=== PATIENT | female | born 1965 | race Caucasian/White ===

== ENCOUNTER 2023-09-27 11:39 | Emergency (ER) | payer BC, SELFPAY ==
[2023-09-27 13:08] VITALS: BP 150/94; PULSE 74; O2SAT 97
== END 2023-09-27 14:05 | disposition left against medical advice (07) ==
PROVIDERS: Emergency Provider Emergency Medicine
DX: M54.50 Low back pain, unspecified (principal); Z87.442 Personal history of urinary calculi; Z53.21 Procedure and treatment not carried out due to patient leaving prior to being seen by health care provider

== ENCOUNTER 2025-01-06 15:52 | Inpatient (IN) | payer BC, SELFPAY ==
--- NOTE | ~2025-01-06 | CT_ITS ---
EXAMINATION: CT ANGIOGRAM CHEST CLINICAL INFORMATION: A. Fib, dilated RA, rule out PE. COMPARISON: None available. TECHNIQUE: Multiple axial images were obtained through the chest after the administration of 50 mL of Omnipaque 350 intravenous contrast. Extensive vascular post-processing including two-dimensional and three-dimensional reformatted images were created and reviewed on an independent workstation. This CT examination was performed using dose optimization techniques as appropriate, variously including the following: *Automated exposure control *Adjustment of mA and/or kV according to patient size (this includes techniques or standardized protocols for targeted exams where dose is matched to indication/reason for exam; i.e. extremities or head) *Use of iterative reconstruction technique FINDINGS: VASCULAR: Exam study quality is good. There are small peripheral segmental and subsegmental pulmonary emboli in the right greater than left lower lobes, and right middle lobe. Clot burden is low. There is no right heart strain, and there is no reflux of contrast into the hepatic IVC. Findings do not meet criteria for submassive PE. There is no evidence of acute aortic syndrome or aneurysm. There is minimal calcific and atheromatous plaque. 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 The main pulmonary artery is not enlarged. The heart size is top normal. There is mild dilatation of the RA. There is no pericardial effusion. LUNGS: Lungs demonstrate patchy subsegmental reticular opacities in both medial lower lobes, likely atelectasis given appearance. There are mild changes of centrilobular emphysema with upper lobe predominance. No additional consolidation or abnormal groundglass opacity. No pleural effusion or pneumothorax. There is small airway thickening diffusely to a mild degree. MEDIASTINUM: Partially imaged thyroid is normal. No adenopathy or mass. Esophagus has a normal appearance. Central airways are normal. AXILLA/CHEST WALL: No masses or lymphadenopathy. UPPER ABDOMEN: There are several tiny nonobstructing calculi in the superior left kidney measuring up to approximately 2 mm. Remainder of the imaged upper abdominal contents appear normal. OSSEOUS STRUCTURES: Unremarkable. CT/CT angio chest PE protocol IMPRESSION: 1. Examination positive for pulmonary emboli, mainly within the segmental and subsegmental right lower lobe, right middle lobe, and left lower lobe. Low clot burden. No evidence of right heart strain or contrast reflux into the IVC. Findings do not meet criteria for submassive PE. 2. Mild bilateral lower lobe subpleural subsegmental reticular opacities, likely atelectasis given appearance. 3. Mild diffuse small airway thickening suggesting chronic bronchitis. 4. Mild centrilobular emphysema. 5. Nonobstructing tiny left renal calculi. Findings communicated to Dr. Isai Busch via secure text at 2:43 PM, 01/07/2025. Electronically signed by: Cedric Flores MD 01/07/2025 02:44 PM EDT
--- NOTE | ~2025-01-06 | XR_ITS ---
CLINICAL HISTORY: palpitations 2 view chest x-ray Comparison: None Findings: Lungs are clear without acute infiltrates. No pneumothorax. Heart size normal. No acute bony abnormalities. Impression: No acute processes This document has been electronically signed by: Thai Olmedo MD on 01/06/2025 18:04:24
[2025-01-06 16:15] VITALS: BP 108/86; BP 134/100; PULSE 152; PULSE 158; RESP 24; TEMP 37; O2SAT 97; BMI 22.9
--- NOTE | 2025-01-06 16:18 | ECG_ITS ---
Test Reason : palpitations Blood Pressure : */* mmHG Vent. Rate : 153 BPM Atrial Rate : * BPM P-R Int : * ms QRS Dur : 74 ms QT Int : 294 ms P-R-T Axes : * 56 -31 degrees QTcB Int : 469 ms Atrial fibrillation with rapid ventricular response Abnormal QRS-T angle, consider primary T wave abnormality Abnormal ECG No previous ECGs available Referred By: Juana Castro Electronically Signed By: EFRAIN LEDBETTER MD
[2025-01-06 16:42] LABS: MANUAL DIFF FLAG NO
[2025-01-06] MEDS: Metoprolol Tartrate 5 MG/5 ML VIAL IVPUSH (16:43)
[2025-01-06] MEDS: 0.9 % Sodium Chloride 1,000 ML 999 ML IV ×2 (16:45→18:10)
--- NOTE | 2025-01-06 16:45 | ED_ITS ---
HPI - Arrhythmia/Palpitations General Chief Complaint: Arrhythmia/Palpitations Stated Complaint: sob,flu like symptoms, a-fib Time Seen by Provider: 01/06/25 15:55 Source: patient and EMS Mode of arrival: EMS Limitations: no limitations History of Present Illness ED Provider: Juana Castro APRN HPI narrative: This is a 59-year-old female who has no known medical history and takes no daily medications who presents to the ER with complaints of palpitations since yesterday afternoon, dyspnea on exertion. No chest pain, dizziness, fevers, chills, leg swelling, leg pain. Of note patient reports 2 weeks ago she had a viral illness which she has recovered from. At that time she had body aches, fever and upper respiratory symptoms. She feels that she may be dehydrated. She does smoke cigarettes daily and drinks 3-4 cups of coffee a day. She has not seen a primary care doctor in many years. Related Data Home Medications ?Medication ?Instructions ?Recorded ?Confirmed No Known Home Meds 01/06/25 01/06/25 Allergies Allergy/AdvReac Type Severity Reaction Status Date / Time No Known Allergies Allergy Verified 01/06/25 16:18 [No Known Allergies*] Review of Systems 2 Review of Systems: Yes all other systems are reviewed and are negative Constitutional: Constitutional: Reports no additional constitutional complaints, Denies body ache(s), Denies chills, Denies fever(s), Denies headache(s) and Denies weakness Eyes: Eyes: Reports no additional eye complaints and Denies change in vision ENT: Reports system reviewed and no additional complaints, except as documented, Denies dizziness, Denies headache(s), Denies nasal congestion, Denies nasal discharge and Denies neck pain Cardiovascular: Cardiovascular: Reports no additional cardiovascular complaints, Denies chest pain, Denies leg edema, Reports palpitations and Reports dyspnea on exertion Respiratory: Respiratory: Reports no additional respiratory complaints, Denies cough and Reports dyspnea on exertion Gastrointestinal: Gastrointestinal: Reports no additional gastrointestinal complaints, Denies abdominal pain, Denies diarrhea, Denies nausea and Denies vomiting Genitourinary: Genitourinary: Reports no additional female genitourinary complaints and Denies urinary incontinence Musculoskeletal: Musculoskeletal: Reports no additional musculoskeletal complaints, Denies back pain, Denies arthralgias, Denies joint swelling, Denies neck pain, Denies numbness and Denies tingling Integumentary/Breasts: Skin/Breast: Reports system reviewed and no additional complaints, except as docu and Denies rash Neurologic: Reports system reviewed and no additional complaints, except as documented, Denies Abnormal speech present, Denies dizziness, Denies headache(s), Denies numbness, Denies tingling and Denies weakness Endocrine: Endocrine: Reports palpitations PMFSH Past Medical History Attestation statement: The following information was validated with the patient. Source: old records reviewed and nursing notes reviewed Medical History (Updated 01/06/25 @ 18:23 by Isai Busch MD) Nephrolithiasis Social History Social History Smoked in Last 30 Days: Yes Use of substances other than those prescribed or required for medical reasons: No Advance Directives: No Advance Directives Information Provided: No Do you have a plan to hurt others: No Plan Patient : No Physical Exam 2 Vital Signs: Vital Signs: Last Vital Signs Temp 98.2 F 01/06/25 19:10 Pulse 108 H 01/06/25 19:10 Resp 17 01/06/25 19:10 BP 105/74 01/06/25 19:10 Pulse Ox 95 01/06/25 19:10 O2 Del Method Room Air 01/06/25 19:10 O2 Flow Rate 97 01/06/25 17:45 BMI result Body Mass Index 22.9 Const: General: cooperative, healthy appearing, comfortable and no acute distress Orientation/consciousness: patient oriented x3 Limitations: no limitations HEENT: Head: Yes normal to inspection Ears: hearing grossly normal bilaterally General nose exam: Normal external nose present Face and sinus: Yes normal facial exam Mouth: Normal oral and palatal mucosa present Throat: Yes posterior oropharynx normal Eyes: General: appearance normal, both eyes and all related structures P upils: Equal, round and reactive pupils present Neck: Neck: Yes normal visual inspection Chest: Chest palpation & inspection: normal inspection of the chest Resp: Effort & Inspection: normal respiratory effort Auscultation: clear to auscultation bilaterally Cardio: Rate: regular rate and tachycardic Rhythm: abnormal rhythm irregularly irregular Peripheral pulses: Peripheral pulses 2+ throughout GI: Inspection: Yes normal to inspection Palpation (GI): Soft to palpation and nontender Auscultation: normal bowel sounds Back/Spine/Pelvis: Thoracic/Lumbar Spine: thoracic and lumbar spine normal to inspection Skin: General skin exam: no rashes or lesions noted Neuro: General: patient oriented x3, no focal motor deficits and normal sensation to monofilament Cranial nerves: Yes Equal, round and reactive pupils present Cognition (Neuro): normal cognition Speech: No Abnormal speech present Gait exam (Neuro): Normal gait present Motor exam (neuro): 5/5 motor strength present throughout Extrem: General: Yes normal to inspection, Yes no pedal edema and Yes no calf tenderness Course Course Course Narrative: 175-heart rate 130s to 140. Blood pressure 101/60 after 1 L of fluid and 5 of IV Lopressor. Patient a new AFib with onset of symptoms 24 hours. Will discuss with Cardiology they are recommendations. Patient will receive additional L of IV fluids Reevaluation(s) Reevaluation #1: 191-After one dose of 0.25mg of digoxin hr is getting better-now 110-120. BP stable. D/w with Dr Mock, will give additional 0.25mg IV digoxin and admit. Medications Administered Discontinued Medications Generic Name Dose Route Start Last Admin Trade Name Freq PRN Reason Stop Dose Admin Apixaban 5 mg 01/06/25 18:05 01/06/25 18:09 Apixaban 5 Mg Tablet PO 01/06/25 18:06 5 mg ONCE ONE Administration Digoxin 0.25 mg 01/06/25 18:00 01/06/25 18:09 Digoxin 0.5 Mg/2 Ml Ampul IVPUSH 01/06/25 18:01 0.25 mg ONCE ONE Administration Protocol Sodium Chloride 1,000 mls @ 999 mls/hr 01/06/25 16:18 01/06/25 17:45 Ns IV 01/06/25 17:18 Infused .Q1H1M STA Infusion Sodium Chloride 1,000 mls @ 999 mls/hr 01/06/25 17:54 01/06/25 18:10 Ns IV 01/06/25 18:54 999 mls/hr .Q1H1M STA Administration Metoprolol Tartrate 5 mg 01/06/25 16:40 01/06/25 16:43 Metoprolol Tartrate 5 Mg/5 Ml Vial IVPUSH 01/06/25 16:41 5 mg ONCE ONE Administration Protocol Medical Decision Making Medical Decision Making [facility] Narrative: This is a 59-year-old female who has no known medical history and takes no daily medications who presents to the ER with complaints of palpitations since yesterday afternoon, dyspnea on exertion. No chest pain, dizziness, fevers, chills, leg swelling, leg pain. Of note patient reports 2 weeks ago she had a viral illness which she has recovered from. At that time she had body aches, fever and upper respiratory symptoms. She feels that she may be dehydrated. She does smoke cigarettes daily and drinks 3-4 cups of coffee a day. She has not seen a primary care doctor in many years. Heart rate is 150-160, irregularly irregular. Blood pressure is stable. Lungs are clear. Will obtain labs, EKG, chest x-ray, viral testing EKG shows AFib with RVR. Patient will be given IV fluids and 5 mg of IV Lopressor CHADS score is 0 Differential Diagnosis Differential Diagnoses: The differential diagnosis associated with the presentation includes AFib with RVR, ACS, electrolyte abnormality Admission/Observation Consideration of admission/observation: Escalation of care including admission/observation considered see course of care Consult Healthcare Provider Management of the patient was discussed with: Desktop Engineer Spoke to Cardiology (Angel) at 1807-recommended NPO status, Eliquis 5 mg b.i.d., digoxin load and admit Lab Data [facility] Lab Attestation statement: I reviewed the patient's lab results. 01/06/25 16:38 01/06/25 16:38 Labs: Lab Results 01/06/25 01/06/25 Range/Units 16:38 17:51 WBC 9.8 (4.8-10.8) X10*3/uL RBC 4.84 (4.20-5.50) X10*6/uL Hgb 15.3 (12.0-16.0) g/dl Hct 44.6 (37.0-47.0) % MCV 92.1 (80.0-98.0) fL MCH 31.6 (27.0-33.0) pg MCHC 34.3 (31.0-35.0) g/dl RDW 13.2 (11.0-16.0) % Plt Count 326 (160-400) X10*3/uL MPV 8.9 L (9.4-12.3) fL Immature Gran % (Auto) 0.5 H (0.0-0.4) % Neut % (Auto) 57.9 (45-73) % Lymph % (Auto) 32.2 (20-40) % [place] % (Auto) 8.1 (2-11) % Eos % (Auto) 0.8 (0-4) % Baso % (Auto) 0.5 (0-2) % Lymph # (Auto) 3.2 (1.2-4.9) X10*3/uL [place] # (Auto) 0.8 (0.1-1.2) X10*3/uL Eos # (Auto) 0.1 (0.0-0.4) X10*3/uL Baso # (Auto) 0.1 (0.0-0.2) X10*3/uL Abs Immat Gran (auto) 0.05 H (0.00-0.03) X10*3/uL Absolute Neuts (auto) 5.7 (2.0-8.3) x10*3/uL Absolute Nucleated RBC 0.000 (0.0-0.012) X10*3/uL Nucleated RBC % (auto) 0.0 (0.0-0.2) /100WBC Sodium 140 (135-145) mmol/L Potassium 4.7 (3.3-5.1) mmol/L Chloride 109 H (96-108) mmol/L Carbon Dioxide 21 L (22-29) mmol/L Anion Gap 15 (12-20) BUN 12 (9-16) mg/dL Creatinine 0.72 (0.5-1.4) mg/dL Estim Creat Clear Calc 89.0 Estimated GFR > 60 Random Glucose 103 (60-115) mg/dL Calcium 9.5 (8.4-10.2) mg/dL Magnesium 2.2 (1.6-2.6) mg/dL Total Bilirubin 0.5 (0.0-1.0) mg/dL Direct Bilirubin 0.1 (0.0-0.5) mg/dL AST 22 (5-31) U/L ALT 14 (0-31) U/L Alkaline Phosphatase 71 (39-117) U/L Troponin I High Sens < 2.7 (<3.5-17.0) ng/L Total Protein 7.2 (6.5-8.0) g/dL Albumin 3.9 (3.5-5.0) g/dL TSH 0.57 (0.32-4.0) uIU/mL Urine Color Yellow Urine Appearance Clear Urine pH 6.5 (5.0-9.0) Ur Specific [place] 1.010 (1.005-1.025) Urine Protein Trace (Neg-Trace) mg/dL Urine Glucose (UA) Negative (Negative) mg/dL Urine Ketones Negative (Negative) mg/dL Urine Blood Negative (Negative) Urine Nitrite Negative (Negative) Ur Leukocyte Esterase Negative (Negative) Influenza Type A (PCR) NEGATIVE (Negative) Influenza Type B (PCR) NEGATIVE (Negative) RSV RNA Qual (PCR) NEGATIVE (Negative) SARS-CoV-2 RNA (RT-PCR) NEGATIVE (Negative) Independent Interpretation I performed an independent interpretation of an: EKG and Plain X-Ray Interpretation: I independently reviewed the EKG which shows AFib with RVR with a rate of 153 I independently reviewed the chest x-ray and agree with the radiology report Radiology Impression Discussion of test interpretation with radiology: I have reviewed the radiologist's reading. Radiologist Impression: [address] [address] XRay Report Signed Patient: Halley Calle MR#: [id number] : 1965 Acct:[id number] Age/Sex: 59 / F ADM Date: 01/06/25 Loc: .ED Attending Dr: Ordering Physician: Juana Castro NP Date of Service: 01/06/25 Procedure(s): XR chest 2V Accession Number(s): [id number] cc: Juana Castro SUPPLIER QUALITY ENGINEER; Raquel Moss SUPPLIER QUALITY ENGINEER~ CLINICAL HISTORY: palpitations 2 view chest x-ray Comparison: None Findings: Lungs are clear without acute infiltrates. No pneumothorax. Heart size normal. No acute bony abnormalities. Impression: No acute processes Independent Historian Clinical information obtained from an independent historian. History obtained from or confirmed by: EMS Critical Care Time Critical Care Time Critical Care Time: Yes Total Critical Care Time: 60 Attestation: Discussion with specialists, discussion with hospitalist for admission, multiple re-evaluations for heart rate Discharge Plan Discharge Clinical Impression: Atrial fibrillation with rapid ventricular response Patient Disposition: Admitted As Inpatient Interventions: Admission Worksheet (ED) Last Done: 01/06/25 18:48
[2025-01-06 16:48] LABS: Basophils Absolute Auto 0.1 X10*3/uL (0.0-0.2); Basophils Percent Auto 0.5 % (0-2); Eosinophils Absolute Auto 0.1 X10*3/uL (0.0-0.4); Eosinophils Percent Auto 0.8 % (0-4); Hematocrit 44.6 % (37.0-47.0); Hemoglobin 15.3 g/dl (12.0-16.0); Imm Gran Abs Auto 0.05 X10*3/uL (0.00-0.03); Imm Gran Pct Auto 0.5 % (0.0-0.4); Lymphocytes Absolute Auto 3.2 X10*3/uL (1.2-4.9); Lymphocytes Percent Auto 32.2 % (20-40); Mean Corpuscular HGB Conc 34.3 g/dl (31.0-35.0); Mean Corpuscular Hemoglobin 31.6 pg (27.0-33.0); Mean Corpuscular Volume 92.1 fL (80.0-98.0); Mean Platelet Volume 8.9 fL (9.4-12.3); Monocytes Absolute Auto 0.8 X10*3/uL (0.1-1.2); Monocytes Percent Auto 8.1 % (2-11); Neutrophils Absolute Auto 5.7 x10*3/uL (2.0-8.3); Neutrophils Percent Auto 57.9 % (45-73); Platelet Count 326 X10*3/uL (160-400); Red Blood Count 4.84 X10*6/uL (4.20-5.50); Red Cell Distribution Width 13.2 % (11.0-16.0); White Blood Count 9.8 X10*3/uL (4.8-10.8)
[2025-01-06 17:00] LABS: Alanine Aminotransferase 14 U/L (0-31); Albumin Level 3.9 g/dL (3.5-5.0); Alkaline Phosphatase 71 U/L (39-117); Anion Gap 15 (12-20); Aspartate Amino Transferase 22 U/L (5-31); Bilirubin Direct 0.1 mg/dL (0.0-0.5); Bilirubin Total 0.5 mg/dL (0.0-1.0); Blood Urea Nitrogen 12 mg/dL (9-16); Calcium 9.5 mg/dL (8.4-10.2); Carbon Dioxide 21 mmol/L (22-29); Chloride 109 mmol/L (96-108); Estimated Glomerular Filt Rate > 60; Glucose Random 103 mg/dL (60-115); Magnesium 2.2 mg/dL (1.6-2.6); Potassium 4.7 mmol/L (3.3-5.1); Sodium 140 mmol/L (135-145); Total Protein 7.2 g/dL (6.5-8.0)
[2025-01-06 17:12] LABS: Troponin-I High Sensitivity < 2.7 ng/L (<3.5-17.0)
[2025-01-06 17:36] LABS: Influenza A PCR NEGATIVE (Negative); Influenza B PCR NEGATIVE (Negative); Resp Syncy Virus RNA Qual PCR NEGATIVE (Negative); SARS COV2 PCR INHOUSE NEGATIVE (Negative)
[2025-01-06 17:45] VITALS: BP 101/60; PULSE 132; RESP 19
--- NOTE | 2025-01-06 17:46 | PC.NURSE ---
Pt's HR between 106-130's AFIB; pt very anxious and angry about being in the hospital; pt stating she's going home tonight no matter what ; pt educated on the risks of going home with her HR and rhythm; CATTLE BROKER made aware
[2025-01-06 18:00] LABS: Appearance Urine Clear; Color Urine Yellow; Glucose Urine UA Negative (Negative); Leukocyte Esterase Urine Negative (Negative); Nitrite Urine Negative (Negative); PH 6.5 (5.0-9.0); Urine Blood Negative (Negative); Urine Ketones Negative (Negative); Urine Protein Trace mg/dL (Neg-Trace)
[2025-01-06] MEDS: Digoxin 0.5 MG/2 ML AMPUL 0.25 MG IVPUSH ×2 (18:09→19:20)
[2025-01-06] MEDS: Apixaban 5 MG TABLET PO (18:09)
--- NOTE | 2025-01-06 18:22 | P.HPHOSP_ITS ---
History of Present Illness Date of Service: 01/06/25 Chief Complaint: palpitations, sob 59F H nephrolithiasis presented with shortness of breath and palpitations. Patient states that her symptoms began 1 day prior to presentation, worse on exertion, denies any chest pain fever or chills. Does note recent flu and reports drinking about 3 cups of coffee per day. In ED noted to be in AFib with rapid ventricular response. Rest of workup unremarkable. Review of Systems 2 Review of Systems: Yes all other systems are reviewed and are negative [facility] Medical History (Updated 01/06/25 @ 18:23 by Isai Busch MD) Nephrolithiasis Social History Smoked in Last 30 Days: Yes Use of substances other than those prescribed or required for medical reasons: No Advance Directives: No Advance Directives Information Provided: No Do you have a plan to hurt others: No Plan Patient : No Meds Allergies Allergy/AdvReac Type Severity Reaction Status Date / Time No Known Allergies Allergy Verified 01/06/25 16:18 [No Known Allergies*] Active Medications: Current Medications Apixaban (Apixaban 5 Mg Tablet) 5 mg PO BID IVONNE Digoxin (Digoxin 0.5 Mg/2 Ml Ampul) 0.25 mg IVPUSH ONCE ONE; Protocol Stop: 01/07/25 00:01 Sodium Chloride (Ns) 1,000 mls @ 999 mls/hr IV .Q1H1M STA Stop: 01/06/25 18:54 Last Admin: 01/06/25 18:10 Dose: 999 mls/hr Physical Exam 2 Vital Signs and Narrative: Vital Signs: Last Vital Signs Temp 98.6 F 01/06/25 16:15 Pulse 132 H 01/06/25 17:45 Resp 19 01/06/25 17:45 BP 101/60 01/06/25 17:45 Pulse Ox 97 01/06/25 16:15 O2 Del Method Room Air 01/06/25 17:45 O2 Flow Rate 97 01/06/25 17:45 BMI result Body Mass Index 22.9 General: AO X 3, no acute distress Resp: CTA bilateral, no accessory muscles used CVS: S1,S2, rapid and irregular GI: soft, non tender, non distended Neuro: motor grossly intact, alert Psych: appropriate affect, appropriate insight Results Labs 01/06/25 16:38 01/06/25 16:38 Labs: Laboratory Results - last 24 hr 01/06/25 01/06/25 16:38 17:51 MCV 92.1 MCH 31.6 MCHC 34.3 RDW 13.2 Plt Count 326 MPV 8.9 L Immature Gran % (Auto) 0.5 H Neut % (Auto) 57.9 Lymph % (Auto) 32.2 [place] % (Auto) 8.1 Eos % (Auto) 0.8 Baso % (Auto) 0.5 Lymph # (Auto) 3.2 [place] # (Auto) 0.8 Eos # (Auto) 0.1 Baso # (Auto) 0.1 Abs Immat Gran (auto) 0.05 H Absolute Neuts (auto) 5.7 Absolute Nucleated RBC 0.000 Nucleated RBC % (auto) 0.0 Anion Gap 15 Estim Creat Clear Calc 89.0 Estimated GFR > 60 Random Glucose 103 Calcium 9.5 Magnesium 2.2 Total Bilirubin 0.5 Direct Bilirubin 0.1 AST 22 ALT 14 Alkaline Phosphatase 71 Total Protein 7.2 Albumin 3.9 Urine Color Yellow Urine Appearance Clear Urine pH 6.5 Ur Specific [place] 1.010 Urine Protein Trace Urine Glucose (UA) Negative Urine Ketones Negative Urine Blood Negative Urine Nitrite Negative Ur Leukocyte Esterase Negative Influenza Type A (PCR) NEGATIVE Influenza Type B (PCR) NEGATIVE RSV RNA Qual (PCR) NEGATIVE SARS-CoV-2 RNA (RT-PCR) NEGATIVE Assessment and Plan (1) Atrial fibrillation with rapid ventricular response: Status: Acute Plan 59F PMH nephrolithiasis presented with shortness of breath and palpitations New onset AFib with rapid ventricular response Admit to [facility] with digoxin, apixaban, cardio eval, echo, NPO after midnight for possible cardioversion DVT prophylaxis on apixaban Full code Given rapid AFib and significant symptoms expected require at least 2 midnights inpatient Quality Stroke Does the patient have a stroke diagnosis?: No VTE Prior VTE?: No VTE Risk Level:: Medical - moderate - high VTE Device Contraindication: Treatment Not Indicated VTE Drug Contraindication: N/A - Med Ordered
[2025-01-06 18:51] LABS: Thyroid Stimulating Hormone 0.57 uIU/mL (0.32-4.0)
--- NOTE | 2025-01-06 18:51 | PHA.MEDREC ---
Addendum entered by Viktoria Oliver RPh 01/06/25 18:53: med rec reviewed by gallito Original Note: Pharmacy Consult ? Medication Reconciliation Pharmacy has completed the medication reconciliation. Patient reports no rx or OTC meds.
[2025-01-06 19:10] VITALS: BP 105/74; PULSE 108; RESP 17; TEMP 36.8; O2SAT 95
[2025-01-06] MEDS: 0.9 % Sodium Chloride 500 ML 999 ML IV (19:20)
[2025-01-06 20:37] VITALS: BP 100/71; PULSE 91; RESP 18
[2025-01-06 21:30] VITALS: BP 100/72; PULSE 91; RESP 16; TEMP 36.3; O2SAT 95
[2025-01-07] VITALS (7 sets, daily range): BP systolic 104–123; BP diastolic 71–89; PULSE 85–113; RESP 16–20; TEMP 36.2–36.8; O2SAT 92–98
[2025-01-07 06:59] LABS: Hematocrit 38.8 % (37.0-47.0); Hemoglobin 12.8 g/dl (12.0-16.0); Mean Corpuscular Hemoglobin 31.8 pg (27.0-33.0); Mean Corpuscular Volume 96.3 fL (80.0-98.0); Platelet Count 263 X10*3/uL (160-400); Red Blood Count 4.03 X10*6/uL (4.20-5.50); Red Cell Distribution Width 13.3 % (11.0-16.0); White Blood Count 7.9 X10*3/uL (4.8-10.8)
--- NOTE | 2025-01-07 07:00 | CA_ITS ---
Transthoracic Echocardiogram Patient (Last, First, Middle): Halley Calle L Gender: Female Date of : 1965 Age: 59 Procedure Date: 01/07/2025 Procedure Type: Transthoracic Echocardiogram Location: [facility] [place] Height: 175.26 cm Weight: 70.31 kg BSA: 1.85 m2 Heart Rate: bpm BP: 117 / 56 mmHg Energy Director: Referring MD: Isai Busch MD Correctional Sergeant: Jose Zhao MD Symptoms: new afib Study Quality: Fair ECG Rhythm: Atrial Fibrillation w RVR Conclusions: - 1. Normal LV ejection fraction 55-60% 2. Dilated right-sided chambers with preserved RV contractility 3. [id number] tricuspid regurgitation with normal RV systolic pressure with mildly elevated right atrial pressures 4. No gross pericardial effusion Findings Left Ventricle Normal left ventricular size, thickness, and systolic function. The visually estimated ejection fraction is between 55-60%. Normal left ventricular filling pressures. Right Ventricle Mildly increased right ventricular cavity size. There is normal right ventricular systolic function. Atria The left atrium is normal in size. There is no evidence of interatrial shunt. The right atrium is mildly dilated. Aortic Valve Normal aortic valve structure and function. There is no aortic valve stenosis. There is no aortic valve regurgitation. Mitral Valve Normal mitral valve structure and function. There is trace mitral valve regurgitation. There is no mitral valve stenosis. Pulmonic Valve The pulmonic valve is likely normal. Tricuspid Valve Likely normal tricuspid valve structure and function. There is mild to moderate tricuspid valve regurgitation. Mildly elevated right atrial pressure. There is no evidence of pulmonary hypertension. Great Vessels All visible segments of the aorta are normal in size. The pulmonary artery was not well visualized. Venous The inferior vena cava is mildly dilated and collapses less than 50% with inspiration. Pericardium/Pleural There is no evidence of pericardial effusion. Prior Study Comparison No prior study available for comparison. Measurements 2D Linear Measurements IVSd: 1.09 0.6-0.9/0.6-1.0 cm LVIDd: 3.27 3.9-5.3/4.2-5.9 cm LVIDd Index: 1.77 2.4-3.2/2.2-3.1 cm/m2 LVIDs: 2.32 2.0-3.6 cm LVPWd: 1.08 0.7-1.1 cm LA Diam: 2.60 2.7-3.8/3.0-4.0 cm LAIDs Index: 1.41 1.5-2.3 cm/m2 LV Mass: 131.06 67-162/88-224 g LV Mass Index: 70.85 43-95/49-115 g/m2 LVOT Diam: 2.30 3.0+(-)1.3 cm Mitral Valve MV Pk E: 0.89 MV Decel Time: 209.00 E'Lateral: 14.40 E'Medial: 13.20 E/E' Med: 6.80 E/E' Lat: 6.20 PHT: 61.00 MVA PHT: 3.61 Decel [place]: 4.27 Aortic Valve AoV Pk Kishan: 1.23 AoV Mn Kishan: 0.83 AoV VTI: 0.22 AoV Pk Grad: 6.00 Aov Mn Grad: 4.00 JACK Cont.VTI: 3.01 LVOT LVOT Pk Kishan: 0.79 LVOT Mn Kishan: 0.51 LVOT VTI: 0.16 LVOT Pk Grad: 2.00 LVOT Mn Grad: 1.00 LVOT Diam: 2.30 LVOT Area: 4.15 Diastolic Function MV Pk E: 0.89 E'Medial: 13.20 E/E' Med: 6.80 E' Laterial: 14.40 E/E' Lat: 6.20 Right Ventricle TAPSE (mm): 27.70 Tricuspid Valve TR Pk Kishan: 2.56 TR Pk Grad: 26.00 RA Press: 8.00 RVSP: 34.00 Great Vessels Aorta Sinus of Valsalva: 3.00 2.0-3.5 cm Pulmonary Valve PV Pk Kishan: 0.88 Peak PV Grad: 3.00 Updated in Other Vendor System with Status of Final Jose Zhao MD electronically signed on 01/07/2025 11:31:05 AM with status of Final
[2025-01-07 07:10] LABS: Anion Gap 8 (12-20); Blood Urea Nitrogen 12 mg/dL (9-16); Calcium 8.4 mg/dL (8.4-10.2); Carbon Dioxide 22 mmol/L (22-29); Chloride 113 mmol/L (96-108); Creatinine Clr Calc Pharmacy 108.5; Estimated Glomerular Filt Rate > 60; Glucose Random 99 mg/dL (60-115); Magnesium 2.1 mg/dL (1.6-2.6); Potassium 4.4 mmol/L (3.3-5.1); Sodium 139 mmol/L (135-145)
[2025-01-07] MEDS: Apixaban 5 MG TABLET PO (08:45)
[2025-01-07] MEDS: 0.9 % Sodium Chloride Flush 3 ML SYRINGE IVFLUSH ×3 (08:46→20:31)
--- NOTE | 2025-01-07 08:50 | P.PNIM_ITS ---
Subjective Subjective Date of Service: 01/07/25 Interval History: no longer symptomatic, still in afib, rate controlled Physical Exam 2 Vital Signs: Vital Signs: Last Vital Signs Temp 97.8 F 01/07/25 07:23 Pulse 98 01/07/25 07:23 Resp 17 01/07/25 07:23 BP 114/84 01/07/25 07:23 Pulse Ox 94 01/07/25 07:23 O2 Del Method Room Air 01/07/25 07:23 O2 Flow Rate 97 01/06/25 17:45 BMI result Body Mass Index 22.9 General: AO X 3, no acute distress Resp: CTA bilateral, no accessory muscles used CVS: S1,S2, irregular GI: soft, non tender, non distended Neuro: motor grossly intact, alert Psych: appropriate affect, appropriate insight Objective Data Active Medications Acetaminophen (Acetaminophen 325 Mg Tablet) 650 mg PO Q6H PRN PRN Reason: Pain, Mild 1-3,fever,headache Apixaban (Apixaban 5 Mg Tablet) 5 mg PO BID [facility] Last Admin: 01/07/25 08:45 Dose: 5 mg Documented By: SAUNDRA Calcium Carbonate (Calcium Carbonate 750 Mg Tab.Chew) 750 mg PO Q4H PRN PRN Reason: Heartburn Magnesium Hydroxide (Milk Of Magnesia 30 Ml Oral.Susp) 30 ml PO DAILY PRN PRN Reason: Constipation Melatonin (Melatonin 3 Mg Tablet) 6 mg PO BEDTIME PRN PRN Reason: Insomnia Sodium Chloride (0.9 % Sodium Chloride Flush 3 Ml Syringe) 3 ml IVFLUSH QSHIFT [facility] Last Admin: 01/07/25 08:46 Dose: 3 ml Documented By: SAUNDRA Labs 01/07/25 06:39 01/07/25 06:39 Labs: Laboratory Results - last 24 hr 01/06/25 01/06/25 01/07/25 16:38 17:51 06:39 MCV 92.1 96.3 MCH 31.6 31.8 MCHC 34.3 33.0 RDW 13.2 13.3 Plt Count 326 263 MPV 8.9 L 9.0 L Immature Gran % (Auto) 0.5 H Neut % (Auto) 57.9 Lymph % (Auto) 32.2 Bureau % (Auto) 8.1 Eos % (Auto) 0.8 Baso % (Auto) 0.5 Lymph # (Auto) 3.2 Bureau # (Auto) 0.8 Eos # (Auto) 0.1 Baso # (Auto) 0.1 Abs Immat Gran (auto) 0.05 H Absolute Neuts (auto) 5.7 Absolute Nucleated RBC 0.000 0.000 Nucleated RBC % (auto) 0.0 0.0 Anion Gap 15 8 L Estim Creat Clear Calc 89.0 108.5 Estimated GFR > 60 > 60 Random Glucose 103 99 Calcium 9.5 8.4 D Magnesium 2.2 2.1 Total Bilirubin 0.5 Direct Bilirubin 0.1 AST 22 ALT 14 Alkaline Phosphatase 71 Total Protein 7.2 Albumin 3.9 TSH 0.57 Urine Color Yellow Urine Appearance Clear Urine pH 6.5 Ur Specific [place] 1.010 Urine Protein Trace Urine Glucose (UA) Negative Urine Ketones Negative Urine Blood Negative Urine Nitrite Negative Ur Leukocyte Esterase Negative Influenza Type A (PCR) NEGATIVE Influenza Type B (PCR) NEGATIVE RSV RNA Qual (PCR) NEGATIVE SARS-CoV-2 RNA (RT-PCR) NEGATIVE Assessment and Plan (1) Atrial fibrillation with rapid ventricular response: Status: Acute Plan 59F [facility] nephrolithiasis presented with shortness of breath and palpitations New onset AFib with rapid ventricular response Status post digoxin load, rate controlled but still in AFib Continue apixaban, cardio eval, echo, NPO for possible cardioversion DVT prophylaxis on apixaban Full code reason for continued hospitalization:afib Quality Stroke Does the patient have a stroke diagnosis?: No VTE Prior VTE?: No VTE Risk Level:: Medical - moderate - high VTE Device Contraindication: Treatment Not Indicated VTE Drug Contraindication: N/A - Med Ordered
--- NOTE | 2025-01-07 08:52 | MHC.CM.PN ---
Patient lives with her spouse/HCP. She reports that a copy is on file at her PCP office. Copy requested for medical record. No DME or VNA services. She anticipates no need for services at [place] and has transport home. Case management following for any changes in plan.
--- NOTE | 2025-01-07 10:43 | PM.CNCAR ---
History of Present Illness History of Present Illness Date of Service: 01/07/25 Requesting physician: Isai Busch Consult reason: atrial fibrillation Chief complaint: AFib Narrative: I was consulted to see Halley in cardiology consultation today for new onset atrial fibrillation. Patient was 59 year female with prior history of nephrolithiasis but last attack in August last year. She had flu about couple weeks ago and she says she was very sick and was bed bound for few days. Currently she bounced back and last week she was doing well until Tuesday when she suddenly started noticing shortness of breath followed by some irregular heartbeat and rapid heart rate. She did not pay much attention to it. 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 She then decided to come to the emergency room and was admitted. Initially rate was controlled with IV medications. She was also started on oral anticoagulation therapy with Eliquis which she got at 06:00 yesterday. Her episodes of shortness of breath started on Tuesday around 15:00. So less than 48 hours till she received her blood thinners and she has been fully anticoagulated since then. This morning while I was seeing her she was having some heart rate issues and was feeling palpitations rate is borderline controlled. A blood pressures been okay. She has had no recent other illnesses. No orthopnea, PND, leg edema. No chest pain. No lightheadedness, syncope. She denies any prior history of atrial fibrillation. Denies any other risk factors. Review of Systems Constitutional: Constitutional: Reports no additional constitutional complaints Cardiovascular: Cardiovascular: Denies chest pain, Reports rapid heart rate, Denies leg edema, Denies lightheadedness, Denies Loss of Consciousness, Reports palpitations and Reports dyspnea on exertion Respiratory: Respiratory: Denies no additional respiratory complaints and Reports dyspnea on exertion Gastrointestinal: Gastrointestinal: Denies no additional gastrointestinal complaints Genitourinary: Genitourinary: Denies no additional female genitourinary complaints Musculoskeletal: Musculoskeletal: Denies no additional musculoskeletal complaints Integumentary/Breasts: Skin/Breast: Denies system reviewed and no additional complaints, except as docu Neurologic: Denies system reviewed and no additional complaints, except as documented Psychiatric: Psychiatric: Denies no additional psychiatric complaints Endocrine: Endocrine: Reports palpitations PMFSH Past Medical History Medical History Nephrolithiasis Social History Social History Household Members: Family Housing: House Do you presently have visiting nurse or other home services: No Patient Tobacco Use Status: Current everyday Tobacco user Tobacco use type: Cigarette Cigarette Packs Per Day: 0.5 Cigarettes Per Day: 10.0 Smoked in Last 30 Days: Yes Patient Interested in Nicotine Replacement: No Patient Given Instructions on How to Stop Smoking: No Second Hand Smoke Exposure: No Use of substances other than those prescribed or required for medical reasons: No Currently Displaying Signs/Symptoms of Drug Intoxication Withdrawal: No Have you been hit, kicked, punched, or otherwise hurt by someone within the past year? If so, by whom?: No Is there a partner from a previous relationship who is making you feel unsafe now?: No Are you made to feel afraid or neglected: No Advance Directives: No Advance Directives Information Provided: No Do you have a plan to hurt others: No Plan Recently lost weight without trying: No Eating poorly because of decreased appetite: No Nutrition Risks: No Nutritional Risk Patient : No Poor oral hygiene: No service: No Meds Allergies Allergy/AdvReac Type Severity Reaction Status Date / Time No Known Allergies Allergy Verified 01/06/25 16:18 [No Known Allergies*] Active Medications: Current Medications Acetaminophen (Acetaminophen 325 Mg Tablet) 650 mg PO Q6H PRN PRN Reason: Pain, Mild 1-3,fever,headache Apixaban (Apixaban 5 Mg Tablet) 5 mg PO BID [facility] Last Admin: 01/07/25 08:45 Dose: 5 mg Calcium Carbonate (Calcium Carbonate 750 Mg Tab.Chew) 750 mg PO Q4H PRN PRN Reason: Heartburn Magnesium Hydroxide (Milk Of Magnesia 30 Ml Oral.Susp) 30 ml PO DAILY PRN PRN Reason: Constipation Melatonin (Melatonin 3 Mg Tablet) 6 mg PO BEDTIME PRN PRN Reason: Insomnia Sodium Chloride (0.9 % Sodium Chloride Flush 3 Ml Syringe) 3 ml IVFLUSH QSHIFT [facility] Last Admin: 01/07/25 08:46 Dose: 3 ml Home Medications ?Medication ?Instructions ?Recorded ?Confirmed ?Last Taken ?Type No Known Home Meds 01/06/25 01/06/25 Unknown History Physical Exam Vital Signs: Vital Signs: Last Vital Signs Temp 97.8 F 01/07/25 07:23 Pulse 98 01/07/25 07:23 Resp 17 01/07/25 07:23 BP 114/84 01/07/25 07:23 Pulse Ox 94 01/07/25 07:23 O2 Del Method Room Air 01/07/25 07:23 O2 Flow Rate 97 01/06/25 17:45 BMI result Body Mass Index 22.9 Const: General: cooperative, comfortable, no acute distress, alert, awake and anxious Nutritional Appearance: thin Orientation/consciousness: patient oriented x3 Limitations: no limitations HEENT: Head: Yes normocephalic and Yes atraumatic Neck: Neck: Yes trachea midline, Yes supple and Yes no JVD Resp: Effort & Inspection: normal respiratory effort Auscultation: clear to auscultation bilaterally Cardio: Jugular venous distension: no JVD Rate: tachycardic Rhythm: abnormal rhythm irregularly irregular Heart sounds: S1 normal heart sound present, S2 normal heart sound present, no click, no gallops, no murmurs and no rubs GI: Auscultation: normal bowel sounds Skin: General skin exam: no rashes or lesions noted Neuro: General: patient oriented x3 and no focal motor deficits Extrem: General: Yes no clubbing, cyanosis or edema Psych: Appearance: grossly normal Affect: Anxious affect present Objective Labs and Meds 01/07/25 06:39 01/07/25 06:39 Lab results: Laboratory Results - last 24 hr 01/06/25 01/06/25 01/07/25 16:38 17:51 06:39 WBC 9.8 7.9 RBC 4.84 4.03 L Hgb 15.3 12.8 Hct 44.6 38.8 MCV 92.1 96.3 MCH 31.6 31.8 MCHC 34.3 33.0 RDW 13.2 13.3 Plt Count 326 263 MPV 8.9 L 9.0 L Immature Gran % (Auto) 0.5 H Neut % (Auto) 57.9 Lymph % (Auto) 32.2 [place] % (Auto) 8.1 Eos % (Auto) 0.8 Baso % (Auto) 0.5 Lymph # (Auto) 3.2 [place] # (Auto) 0.8 Eos # (Auto) 0.1 Baso # (Auto) 0.1 Abs Immat Gran (auto) 0.05 H Absolute Neuts (auto) 5.7 Absolute Nucleated RBC 0.000 0.000 Nucleated RBC % (auto) 0.0 0.0 Sodium 140 139 Potassium 4.7 4.4 Chloride 109 H 113 H Carbon Dioxide 21 L 22 Anion Gap 15 8 L BUN 12 12 Creatinine 0.72 0.59 Estim Creat Clear Calc 89.0 108.5 Estimated GFR > 60 > 60 Random Glucose 103 99 Calcium 9.5 8.4 D Magnesium 2.2 2.1 Total Bilirubin 0.5 Direct Bilirubin 0.1 AST 22 ALT 14 Alkaline Phosphatase 71 Troponin I High Sens < 2.7 Total Protein 7.2 Albumin 3.9 TSH 0.57 Urine Color Yellow Urine Appearance Clear Urine pH 6.5 Ur Specific [place] 1.010 Urine Protein Trace Urine Glucose (UA) Negative Urine Ketones Negative Urine Blood Negative Urine Nitrite Negative Ur Leukocyte Esterase Negative Influenza Type A (PCR) NEGATIVE Influenza Type B (PCR) NEGATIVE RSV RNA Qual (PCR) NEGATIVE SARS-CoV-2 RNA (RT-PCR) NEGATIVE Assessment and Plan (1) Atrial fibrillation with rapid ventricular response: Status: Acute Patient presents with new onset atrial fibrillation rapid ventricular response with symptoms started initially with shortness of breath. Recent illness and being very limited activity about couple weeks ago with flu. Pulmonary embolism needs to be ruled out as a cause for her atrial fibrillation. Echocardiogram has been performed. Will review. Also suggest a D-dimer. If there was no significant suggestion of pulmonary embolism, would pursue rhythm control approach. Will start with chemical cardioversion. Will start her with metoprolol and give a flecainide to try to get her back into sinus rhythm. She was received blood thinners within 48 hours and risk for thromboembolic complication is low. If she fails to cardio with with chemical conversion will schedule him for synchronized cardioversion tomorrow. Management of atrial fibrillation was discussed in details. She understands and agrees. Will follow with you Procedures Date of Service Date of Service: 01/07/25
[2025-01-07 10:55] LABS: D Dimer High Sensitivity 314 NG/ML
[2025-01-07] MEDS: iohexoL 350 MG/ML 100 ML INFUS..BTL IV (14:08)
[2025-01-07] MEDS: Metoprolol Tartrate 5 MG/5 ML VIAL IVPUSH (14:59)
[2025-01-07] MEDS: Metoprolol Tartrate 25 MG TABLET PO (20:31)
[2025-01-07] MEDS: Apixaban 5 MG TABLET 10 MG PO (20:31)
[2025-01-08 03:32] VITALS: BP 118/81; PULSE 80; RESP 20; TEMP 36.3; O2SAT 96
[2025-01-08 07:43] VITALS: BP 118/86; PULSE 92; RESP 18; TEMP 36.4; O2SAT 93
[2025-01-08] MEDS: Metoprolol Tartrate 25 MG TABLET PO (08:14)
[2025-01-08] MEDS: Apixaban 5 MG TABLET 10 MG PO (08:14)
[2025-01-08] MEDS: 0.9 % Sodium Chloride Flush 3 ML SYRINGE IVFLUSH (08:16)
--- NOTE | 2025-01-08 08:23 | P.DS_ITS ---
DS: Providers Provider Date of Service: 01/08/25 Date of admission: 01/06/25 18:21 Date of discharge: 01/08/25 Primary care physician: Raquel Moss NP Consults: 01/06/25 18:10 Consult to Cardiology Routine Consulting Provider: [facility] Reason for consultation: afib Has provider been notified: Yes DS: Diagnosis Discharge Diagnosis (1) Atrial fibrillation with rapid ventricular response: Status: Acute DS: Summary Hospital Course Hospital Course: from initial hpi: 59F [facility] nephrolithiasis presented with shortness of breath and palpitations. Patient states that her symptoms began 1 day prior to presentation, worse on exertion, denies any chest pain fever or chills. Does note recent flu and reports drinking about 3 cups of coffee per day. In ED noted to be in AFib with rapid ventricular response. Rest of workup unremarkable. hospital course: Patient was admitted for new onset AFib with rapid ventricular response. Initially treated with digoxin load and then transitioned to metoprolol. Was started on apixaban. Was seen by Cardiology, based on echocardiogram results of mildly elevated right atrial pressures and dilated right-sided chambers there was concern for pulmonary embolism, CTA showed segmental and subsegmental low clot burden right-sided pulmonary embolism. Apixaban was increased to 10 mg b.i.d. plan for cardioversion deferred for now. We will continue with rate control strategy. Patient will be discharged home on metoprolol and apixaban. She will follow up with Cardiology and we will also follow up with Hematology to determine duration of therapy of anticoagulation. She was encouraged to quit smoking and decrease caffeine intake. Time Attestation Discharge Coordination Time (in mins): 35 Quality: Safe Use of Opioids Does Pt have an Active Cancer Diagnosis on the Problem List?: No Quality: Stroke Does the patient have a stroke diagnosis?: No Physical Exam Vital Signs: Vital Signs: Last Vital Signs Temp 97.5 F 01/08/25 07:43 Pulse 92 01/08/25 07:43 Resp 18 01/08/25 07:43 BP 118/86 01/08/25 07:43 Pulse Ox 93 01/08/25 07:43 O2 Del Method Room Air 01/08/25 07:43 O2 Flow Rate 97 01/06/25 17:45 BMI result Body Mass Index 22.9 General: AO X 3, no acute distress Resp: CTA bilateral, no accessory muscles used CVS: S1,S2, irregular GI: soft, non tender, non distended Neuro: motor grossly intact, alert Psych: appropriate affect, appropriate insight DS: Data Data Completed and Pending Labs on day of discharge: Laboratory Results - last 24 hr 01/07/25 10:27 D-Dimer High Sensitivty 314 Discharge Plan Discharge Anticipated Discharge Date/Time: 01/08/25 08:19 Patient Disposition: Home, Self-Care Discharge Diagnosis: afib, pulmonary embolism Referrals: Kamryn Jean MD [Physician] - 1 Week (PE) Raquel Moss NP [Primary Care Provider] - 1 Week Discharge Medications: New Eliquis 5 mg Tablet 10 mg PO BID Qty: 180 0RF Rx Instructions: 10mg bid for 6 more days, then decrease to 5mg bid metoprolol tartrate 25 mg Tablet 25 mg PO BID Qty: 180 0RF Protocol: Hold for SBP/HR < HOLD for SBP < : 90 HOLD for HR < : 60 Discharge Orders: Discharge Order (Routine); Ordered 01/08/25 Ordered By: Isai Busch Diet: Advance to usual diet Activity on Discharge: As tolerated Stand Alone Forms: Patient Portal Discharge page Print Language: Latvian Care Plan Goals: manage afib and pe Health Concerns: afib, pe Plan of Treatment: pe: Continue apixaban 10 mg b.i.d. for 6 more days then decrease to 5 mg b.i.d. follow up with Hematology to determine duration of treatment afib: Start metoprolol tartrate 25 mg b.i.d. to slow down heart rate, and follow up with Cardiology, stop smoking and would decrease caffeine intake Assessment: see above
--- NOTE | 2025-01-08 10:22 | MHC.CM.PN ---
Pt is medically cleared for discharge home self-care, pt has arranged their own transport home.
--- NOTE | 2025-01-08 10:42 | P.PNCA_ITS ---
Subjective Subjective Date of Service: 01/08/25 Principal diagnosis: Pulmonary embolism, atrial fibrillation Interval history: Patient is feeling a lot better. Shortness of breath improved. Not having significant palpitations. Diagnose with pulmonary embolism yesterday. She has no prior history of pulmonary VTE Review of Systems Constitutional: Reports no additional constitutional complaints Eyes: Reports no additional eye complaints Cardiovascular: Reports rapid heart rate and Reports dyspnea on exertion Respiratory: Reports no additional respiratory complaints and Reports dyspnea on exertion Physical Exam Vital Signs: Last Vital Signs Temp 97.5 F 01/08/25 07:43 Pulse 92 01/08/25 07:43 Resp 18 01/08/25 07:43 BP 118/86 01/08/25 07:43 Pulse Ox 93 01/08/25 07:43 O2 Del Method Room Air 01/08/25 07:43 O2 Flow Rate 97 01/06/25 17:45 BMI result Body Mass Index 22.9 Const General: cooperative, comfortable, no acute distress, alert, awake and anxious Nutritional Appearance: thin Orientation/consciousness: patient oriented x3 Limitations: no limitations HEENT Head: Yes normocephalic and Yes atraumatic Neck Neck: Yes trachea midline, Yes supple and Yes no JVD Resp Effort & Inspection: normal respiratory effort Auscultation: clear to auscultation bilaterally Cardio Jugular venous distension: no JVD Rate: tachycardic Rhythm: abnormal rhythm irregularly irregular Heart sounds: S1 normal heart sound present, S2 normal heart sound present, no click, no gallops, no murmurs and no rubs GI Auscultation: normal bowel sounds Skin General skin exam: no rashes or lesions noted Neuro General: patient oriented x3 and no focal motor deficits Extrem General: Yes no clubbing, cyanosis or edema Psych Appearance: grossly normal Affect: Anxious affect present Objective Labs and Meds 01/07/25 06:39 01/07/25 06:39 Lab results: Laboratory Results - last 24 hr 01/07/25 10:27 D-Dimer High Sensitivty 314 Imaging Radiologist's impression: Impressions Chest CTA 01/07/25 13:53 IMPRESSION: 1. Examination positive for pulmonary emboli, mainly within the segmental and subsegmental right lower lobe, right middle lobe, and left lower lobe. Low clot burden. No evidence of right heart strain or contrast reflux into the IVC. Findings do not meet criteria for submassive PE. 2. Mild bilateral lower lobe subpleural subsegmental reticular opacities, likely atelectasis given appearance. 3. Mild diffuse small airway thickening suggesting chronic bronchitis. 4. Mild centrilobular emphysema. 5. Nonobstructing tiny left renal calculi. Findings communicated to Dr. Isai Busch via secure text at 2:43 PM, 01/07/2025. Electronically signed by: Cedric Flores MD 01/07/2025 02:44 PM EDT Progress Note: A&P Assessment and plan (1) Atrial fibrillation with rapid ventricular response: Status: Acute Assessment and Plan: Persistent atrial fibrillation, precipitated by acute pulmonary embolism. By itself does not require long-term anticoagulation for atrial fibrillation from that perspective. I would discharge her home on rate control as well as oral anticoagulation therapy which has been prescribed for pulmonary embolism. Will set up for outpatient Holter monitor in a week or 2 weeks time and in 4 weeks follow up visit to discuss cardioversion if she remains in sinus rhythm. It is possible that she can spontaneously convert to sinus rhythm after pulmonary embolism and RV strain has resolved. This was discussed with her. Avoidance of stimulants was discussed. (2) Pulmonary embolism: Status: Acute Assessment and Plan: Pulmonary embolism after recent medical illness without hospitalization. This is concerning for possible underlying thrombophilic component. Discussed with the patient about the same. She has been referred to rheumatology for further evaluation. Of at least treat her with anticoagulation for 6 months and skilled nursing if she has underlying hypercoagulable state. Thank you for allowing me to partake in her care Time Spent With Patient Time: Total time managing care of this patient today ____ minutes. Progress Note: Quality Stroke Does the patient have a stroke diagnosis?: No Procedures Date of Service Date of Service: 01/08/25
== END 2025-01-08 09:24 | disposition home or self-care (01) | DRG 201 ==
LOC: HO.ED 18:08 → HO.EDOVER 18:33 → HO.IMC 19:44
PROVIDERS: Nurse Practitioner Family; Admitting Provider Internal Medicine; Emergency Provider Emergency Medicine Emergency Medical Services; PCP Nurse Practitioner; Visit Provider Internal Medicine
DX: I48.91 Unspecified atrial fibrillation (principal); I26.99 Other pulmonary embolism without acute cor pulmonale; F17.210 Nicotine dependence, cigarettes, uncomplicated; Z71.6 Tobacco abuse counseling; Z20.822 Contact with and (suspected) exposure to COVID-19; Z87.442 Personal history of urinary calculi
CPT/HCPCS: 0241U; 36415; 71046; 71275; 80048; 80076; 81003; 83735; 84443; 84484; 85025; 85027; 85379; 93005; 93306; 99285; J1160; Q9967

== ENCOUNTER → 2025-01-06 16:18 | Outpatient (BNV) | payer BC, SELFPAY | PROVIDERS: Admitting Provider Internal Medicine; Emergency Provider Emergency Medicine Emergency Medical Services; PCP Nurse Practitioner; Visit Provider Internal Medicine Cardiovascular Disease | DX: I48.91 Unspecified atrial fibrillation (principal) | CPT/HCPCS: 93010 ==

== ENCOUNTER → 2025-01-06 16:18 | Outpatient (BNV) | payer BC, SELFPAY | PROVIDERS: Admitting Provider Internal Medicine; Emergency Provider Emergency Medicine Emergency Medical Services; PCP Nurse Practitioner; Visit Provider Radiology Diagnostic Radiology | DX: R00.2 Palpitations (principal) | CPT/HCPCS: 71046 ==

== ENCOUNTER → 2025-01-06 16:39 | Outpatient (BNV) | payer BC, SELFPAY | PROVIDERS: Emergency Provider Emergency Medicine Emergency Medical Services; PCP Nurse Practitioner; Visit Provider Internal Medicine | DX: I48.91 Unspecified atrial fibrillation (principal) | CPT/HCPCS: 99223 ==

== ENCOUNTER 2025-01-06 18:21 | Outpatient (BNV) | payer BC, SELFPAY | END 2025-01-07 07:00 | PROVIDERS: Admitting Provider Internal Medicine; Emergency Provider Emergency Medicine Emergency Medical Services; PCP Nurse Practitioner; Visit Provider Internal Medicine Cardiovascular Disease | DX: I36.1 Nonrheumatic tricuspid (valve) insufficiency (principal); I51.7 Cardiomegaly | CPT/HCPCS: 93306 ==

== ENCOUNTER 2025-01-06 18:21 | Outpatient (BNV) | payer BC, SELFPAY | END 2025-01-07 13:53 | PROVIDERS: Admitting Provider Internal Medicine; Emergency Provider Emergency Medicine Emergency Medical Services; PCP Nurse Practitioner; Visit Provider Radiology Diagnostic Radiology | DX: I26.99 Other pulmonary embolism without acute cor pulmonale (principal) | CPT/HCPCS: 71275 ==

== ENCOUNTER → 2025-01-06 18:21 | Outpatient (BNV) | payer BC, SELFPAY | PROVIDERS: Admitting Provider Internal Medicine; Emergency Provider Emergency Medicine Emergency Medical Services; PCP Nurse Practitioner; Visit Provider Internal Medicine Cardiovascular Disease | DX: I48.91 Unspecified atrial fibrillation (principal) | CPT/HCPCS: 99222 ==

== ENCOUNTER → 2025-02-05 09:47 | Outpatient (BNV) | payer BC, SELFPAY | PROVIDERS: PCP Nurse Practitioner; Visit Provider Internal Medicine | DX: I26.99 Other pulmonary embolism without acute cor pulmonale (principal) | CPT/HCPCS: 99204 ==

== ENCOUNTER 2025-02-06 14:20 | Outpatient (AMB) | payer BC, SELFPAY ==
[2025-02-06 14:24] VITALS: BP 108/66; PULSE 76; BMI 24.7
--- NOTE | 2025-02-06 14:24 | MHC.OFFVIS ---
Vital Signs 02/06/25 14:24 Height 5 ft 9 in Weight 167 lb 8.821 oz BMI 24.7 BP 108/66 Blood Pressure Location Lt brachial Position Sitting Pulse 76 Intake Visit Reasons: 4 wk s/p [facility] / holterNS Intake Note: 4 week follow-up after [facility] DC and holter feeling better Physiognomist Required: No Allergies No Known Allergies [No Known Allergies*] Allergy (Verified 01/06/25 16:18) Medication List - Last Reconciled 02/06/25 by Ricardo Nelson NP apixaban (Eliquis) 5 mg PO BID metoprolol tartrate 25 mg See Protocol PO BID HPI Comments Details: This is a 59-year-old male patient coming in for a hospital discharge follow-up. Patient was recently hospitalized for palpitations and shortness of breath, following a recent episode of flu, during which she was bed-bound for several days. In the emergency department, she was found to be in AFib with RVR which is new and was treated with IV digoxin metoprolol and was started on apixaban. Patient had an echo that revealed mildly elevated right atrial pressure and dilated right heart chambers racing concerns for PE. A CTA subsequently confirmed a right-sided PE. Her Eliquis is then increase to 10 mg twice daily and as of yesterday following Hematology consultation, she has been transitioned to Eliquis 5 mg twice daily. Patient denies any signs of bleeding. Today, the patient reports feeling well overall. Patient denies any ongoing cardiac or pulmonary symptoms including exertional chest pain, shortness of breath, palpitations, dizziness, orthopnea, PND, leg edema, presyncope, or syncope. She affirms that she has been compliant with all her medications. [facility] Medical History delivery delivered Pulmonary embolism Nephrolithiasis Surgical History Knee joint replacement status Family History Mother Colon cancer Social History Household Members: Spouse, Family and Children Housing: House Do you presently have visiting nurse or other home services: No Patient Tobacco Use Status: Never used Tobacco Tobacco use type: Cigarette Cigarette Packs Per Day: 0.5 Second Hand Smoke Exposure: No service: No Current occupational status: employed Review of Systems Const Denies chills, Denies fatigue, Denies fever(s), Denies frequent falls, Denies weakness, Denies weight gain and Denies weight loss ENT Denies dizziness Card Denies chest pain, Denies leg edema, Denies lightheadedness, Denies palpitations, Denies dyspnea, Denies dyspnea on exertion, Denies orthopnea and Denies other (loss of consciousness) Resp Denies cough, Denies dyspnea and Denies dyspnea on exertion GI Denies hematochezia and Denies change in stool character Musc Denies abnormal gait, Denies muscle weakness, Denies numbness, Denies radiating pain into limb and Denies tingling Neuro Denies abnormal gait, Denies dizziness, Denies frequent falls, Denies numbness, Denies tingling and Denies weakness Endo Denies fatigue and Denies palpitations Physical Exam Vital Signs: Last Vital Signs Pulse 76 02/06/25 14:24 BP 108/66 02/06/25 14:24 BMI result Body Mass Index 24.7 Const General: cooperative, healthy appearing, comfortable and no acute distress Orientation/consciousness: patient oriented x3 HEENT Head: Yes normal to inspection Neck Neck: Yes normal visual inspection, Yes trachea midline and Yes supple Chest Chest palpation & inspection: normal inspection of the chest Resp Effort & Inspection: normal respiratory effort Auscultation: clear to auscultation bilaterally, no crackles, no rales, no rhonchi and no wheezes Cardio Jugular venous distension: no JVD Palpation: normal PMI Rate: regular rate Rhythm: regular rhythm Heart sounds: S1 normal heart sound present, S2 normal heart sound present, no click, no gallops, no murmurs and no rubs Peripheral pulses: Peripheral pulses 2+ throughout GI Inspection: Yes normal to inspection Palpation (GI): Soft to palpation Auscultation: normal bowel sounds Skin General skin exam: no rashes or lesions noted Neuro General: patient oriented x3 Extrem General: Yes normal to inspection, No no pedal edema and No calf tenderness Psych Appearance: grossly normal Mental Status: mental status grossly normal Speech and movement: Normal speech and movement present Office Procedures EKG Details: EKG today showed normal sinus rhythm, rate 74 beats per minute, nonspecific STT wave abnormality, [place] AR, [place]. [id number], Complete Assessment & Plan Assessment & Plan (1) Afib: Code(s): I48.91 - Unspecified atrial fibrillation Category: Medical Plan: EKG today showed normal sinus rhythm. Her AFib could be triggered by the PE. Patient has completed her Eliquis dosing of 10 mg b.i.d. for the 6 days and now is on 5 mg b.i.d. and upon hematology consultation yesterday, patient states that she has been advised to continue Eliquis for lifelong therapy. Patient denies any signs of bleeding. Labs need to be monitored periodically. Patient is clinically stable. We will get a Holter monitor to assess for any recurrence of AFib and is burden. Further treatment based on findings. Continue metoprolol for rate control approach. Blood pressure within normal limits. Reviewed case with Dr. Zhao. (2) Pulmonary embolism: Comment: diagnosed 01/07/25, segmental right sided, low clot burden, ?provoked - recent flu, smoking Code(s): I26.99 - Other pulmonary embolism without acute cor pulmonale Category: Medical Plan: As above. (3) Hospital discharge follow-up: Code(s): Z09 - Encounter for follow-up examination after completed treatment for conditions other than malignant neoplasm Plan: As above. Advised heart healthy diet, regular physical activity, monitoring blood pressures with an ideal goal of less than 130/80, med compliance, smoking cessation, avoiding stimulants including alcohol and caffeinated beverages, and stress medication strategies. Follow up in 6 months with an updated echo. In the interim, patient will call the office with any concerns or change in symptoms. This note was generated using voice recognition software. While every effort has been made to ensure accuracy and proper artificial snow making machine operator, there may be occasional errors that could affect the content or meaning of the described symptoms. Orders: Orders AMB EKG-In Office Today Ricardo Nelson NP I48.91 - Unspecified atrial fibrillation CA echo transthoracic complete 5 Months Ricardo Nelson NP I26.99 - Other pulmonary embolism without acute cor pulmonale, I48.91 - Unspecified atrial fibrillation ECG 3 day holter monitor Today Ricardo Nelson NP I48.91 - Unspecified atrial fibrillation Medications: Changed From apixaban (Eliquis) 10mg bid for 6 more days, then decrease to 5mg bid 10 mg (2 x 5 mg) PO BID 180 tabs 0RF To apixaban (Eliquis) 10mg bid for 6 more days, then decrease to 5mg bid 5 mg PO BID Isai Busch MD Coding Level of Care Code Est Pt Level 4 (40744) Complex EM visit Add On G2211 Diagnoses Afib I48.91 Pulmonary embolism I26.99 Hospital discharge follow-up Z09 CPT Codes EKG - CPT: [id number], Complete ([id number]) Time Spent (min) 32 Comment Time spent in reviewing the chart, test results, assessment, counseling and documentation.
== END 2025-02-06 15:03 | disposition home or self-care (01) ==
LOC: HO.HCS 14:21
PROVIDERS: PCP Nurse Practitioner
DX: I48.91 Unspecified atrial fibrillation (principal); I26.99 Other pulmonary embolism without acute cor pulmonale; Z09 Encounter for follow-up examination after completed treatment for conditions other than malignant neoplasm
CPT/HCPCS: 93010; 99214

== ENCOUNTER → 2025-02-06 14:20 | Outpatient (BNVA) | payer BC, SELFPAY | PROVIDERS: PCP Nurse Practitioner | DX: Z09 Encounter for follow-up examination after completed treatment for conditions other than malignant neoplasm (principal); I48.91 Unspecified atrial fibrillation; I26.99 Other pulmonary embolism without acute cor pulmonale; Z79.01 Long term (current) use of anticoagulants | CPT/HCPCS: 93005 ==

== ENCOUNTER → 2025-02-15 07:55 | Outpatient (REF) | payer BC, SELFPAY | LOC: HO.CARD 07:55 | PROVIDERS: PCP Nurse Practitioner | DX: I48.91 Unspecified atrial fibrillation (principal) | CPT/HCPCS: 93242 ==

== ENCOUNTER → 2025-02-15 07:56 | Outpatient (BNV) | payer BC, SELFPAY | PROVIDERS: PCP Nurse Practitioner; Visit Provider Internal Medicine | DX: I47.10 Supraventricular tachycardia, unspecified (principal) | CPT/HCPCS: 93244 ==

== ENCOUNTER → 2025-07-02 10:00 | Outpatient (REF) | payer BC, SELFPAY ==
--- NOTE | 2025-07-02 10:02 | CA_ITS ---
Transthoracic Echocardiogram Patient (Last, First, Middle): Halley Calle L Gender: F Date of : 1965 Age: 59 Procedure Date: 07/02/2025 Procedure Type: Transthoracic Echocardiogram Location: OP Height: 175. cm Weight: 79.38 kg BSA: 1.95 m2 Heart Rate: 68 bpm BP: 110 / 70 mmHg Sales Representative [employer]: MELIDA Alvarez MD: Ricardo Nelson ACQUISITIONS LOGISTICS ANALYST It Recruiter: Jose Zhao MD Symptoms: I48.91 - Unspecified atrial fibrillation Study Quality: Adequate ECG Rhythm: Sinus Conclusions: - 1. Normal LV ejection fraction 55-60% with grade 1 diastolic dysfunction 2. Cardiac valvular Dopplers within normal limits 3. Normal RV systolic pressure 4. No gross pericardial effusion Findings Left Ventricle Normal left ventricular size, thickness, and systolic function. The visually estimated ejection fraction is between 55-60%. Spectral Doppler is indicative of an impaired relaxation filling pattern. E/E prime ratio is <8, consistent with normal filling pressures. Evidence suggests grade I (mild) diastolic dysfunction. Right Ventricle Normal right ventricular cavity size and systolic function. Atria Both atria are normal in size. There is no evidence of interatrial shunt. Aortic Valve Normal aortic valve structure and function. There is no aortic valve stenosis. There is no aortic valve regurgitation. Mitral Valve Normal mitral valve structure and function. There is trace mitral valve regurgitation. There is no mitral valve stenosis. Pulmonic Valve The pulmonic valve is likely normal. Tricuspid Valve Normal tricuspid valve structure. There is trace tricuspid valve regurgitation. The right ventricular systolic pressure is normal. The right ventricular systolic pressure is 18 mmHg. Normal right atrial pressure. There is no evidence of pulmonary hypertension. Great Vessels All visible segments of the aorta are normal in size. The pulmonary artery was not well visualized. Venous The inferior vena cava is normal in size and collapses greater than 50% with inspiration. Pericardium/Pleural There is no evidence of pericardial effusion. Prior Study Comparison Changes noted compared to prior study dated: 01/07/2025. right-sided chambers are not significantly enlarged. Tricuspid regurgitation in his mild Measurements 2D Linear Measurements IVSd: 0.93 0.6-0.9/0.6-1.0 cm LVIDd: 4.64 3.9-5.3/4.2-5.9 cm LVIDd Index: 2.38 2.4-3.2/2.2-3.1 cm/m2 LVIDs: 3.10 2.0-3.6 cm LVPWd: 0.98 0.7-1.1 cm LA Diam: 2.90 2.7-3.8/3.0-4.0 cm LAIDs Index: 1.49 1.5-2.3 cm/m2 LV Mass: 187.56 67-162/88-224 g LV Mass Index: 96.18 43-95/49-115 g/m2 LVOT Diam: 2.10 3.0+(-)1.3 cm 2D Systolic Function EF 4C: 51.20 >55% EF 2C: 58.90 >55% EF BiP: 56.30 >55% Mitral Valve MV Pk E: 0.67 MV PK A: 0.85 MV Decel Time: 276.00 E/A: 0.80 E'Lateral: 6.64 E'Medial: 6.42 E/E' Med: 10.40 E/E' Lat: 10.10 PHT: 81.00 MVA PHT: 2.72 Decel Miller: 2.43 Aortic Valve AoV Pk Kishan: 1.32 AoV Mn Kishan: 0.92 AoV VTI: 0.26 AoV Pk Grad: 7.00 Aov Mn Grad: 4.00 JACK Cont.VTI: 2.40 LVOT LVOT Pk Kishan: 0.85 LVOT Mn Kishan: 0.65 LVOT VTI: 0.18 LVOT Pk Grad: 3.00 LVOT Mn Grad: 2.00 LVOT Diam: 2.10 LVOT Area: 3.46 Diastolic Function MV Pk E: 0.67 MV Pk A: 0.85 E/A: 0.80 E'Medial: 6.42 E/E' Med: 10.40 E' Laterial: 6.64 E/E' Lat: 10.10 Right Ventricle TAPSE (mm): 23.80 TVS' Kishan: 10.00 Tricuspid Valve TR Pk Kishan: 1.95 TR Pk Grad: 15.00 RA Press: 3.00 RVSP: 18.00 Great Vessels Aorta Sinus of Valsalva: 3.20 2.0-3.5 cm Ao Asc: 3.30 2.1-3.4 cm Ao Arch: 2.50 Pulmonary Veins Pulm Vein S/D 1.30 Pulmonary Valve PV Pk Kishan: 0.80 Peak PV Grad: 3.00 Updated in Other Vendor System with Status of Final Jose Zhao MD electronically signed on 07/02/2025 1:43:06 PM with status of Final
--- OUTSIDE RECORDS SUMMARY | 2025-07-02 11:44 | XMS_ITS | Clinical Summary ---
Author Organization [facility] Address [address] [address] Phone Care Team Providers Care Dramatic Arts Historian Name Role Phone Christen Moss Primary Care Provider [phone] Allergies No known active allergies Medications No known medications Social History Tobacco Use Types Packs/Day Years Used Date Smoking Tobacco: Never Assessed Education Answer Date Recorded Are you interested in more education? Not on severiano e 01/21/2023 Are you concerned about learning? Not on file 01/21/2023 No 01/21/2023 No 01/21/2023 Digital Access Answer Date Recorded No 02/19/2023 No 02/19/2023 Reliable internet access at home? Not on file 02/19/2023 Device with a working camera? Not on file Intimate Partner Violence Answer Date R ecorded Are you denied basic needs s uch as food, clothing, or medical care? No 11/18/2024 In the past 12 months have y ou been in a relationship with a person who hurts, threatens, or tries to control you? No 11/18/2024 Are you denied basic needs s uch as food, clothing, or medical care? No 11/18/2024 In the past 12 months have y ou been in a relationship with a person who hurts, threatens, or tries to control you? No 11/18/2024 Comments Unknown Sex and Gender Information Value Date Recorded Sex Assigned at Female 11/18/2024 6:32 PM EST Legal Sex Female 9:39 PM EDT Gender Identity Female 11/18/2024 6:32 PM EST Sexual Orientation Not on file Last Filed Vital Signs Vital Sign Reading Time Taken Comments Blood Pressure 136/87 11/18/2024 8:23 PM EST Pulse 83 11/18/2024 8:23 PM EST Temperature 36.8 C (98.2 F) 11/18/2024 8:23 PM EST Respiratory Rate 16 11/18/2024 8:23 PM EST Oxygen Saturation 97% 11/18/2024 8:23 PM EST Inhaled Oxygen Concentration - - Weight 72.6 kg (160 lb) 11/18/2024 6:31 PM EST Height 175.3 cm (5' 9 ) 11/18/2024 6:31 PM EST Body Mass Index 23.63 11/18/2024 6:31 PM EST Plan of Treatment Health Maintenance Due Date Last Done Comments LIPID PANEL 1966 DEPRESSION SCREENING 1978 SMOKING Hx and SMOKELESS TOBACCO SCREENING 1979 HEPATITIS C SCREENING 1984 HIV ONE-TIME SCREENING (18-6 5 YEARS) 1984 PAP SMEAR 1987 MAMMOGRAM 2006 COLOGUARD 2011 COLONOSCOPY 2011 COLORECTAL CANCER SCREENING 2011 FIT TEST 2011 FOBT 2011 SIGMOIDOSCOPY 2011 VIRTUAL COLONOSCOPY 2011 PNEUMOCOCCAL VACCINES (50+ years) (1 of 1 - PCV) 2016 ZOSTER VACCINES (1 of 2) 2016 INFLUENZA VACCINE (#1) 2025 COVID-19 VACCINE (3 - 2024-2 6 season) 2025 01/23/2021, 12/26/2020 Adult Td,Tdap Booster 03/07/2034 03/07/2024 RSV VACCINE (1 - 1-dose 75+ series) 2041 HEPATITIS A VACCINES Aged Out No long er eligible based on patient's age to complete this topic HIB VACCINES Aged Out No longer eligi ble based on patient's age to complete this topic MENINGOCOCCAL VACCINES (ACWY) Aged Out No longer eligible based on patient's age to complete this topic MENINGOCOCCAL VACCINES (B) Aged Out N o longer eligible based on patient's age to complete this topic Medical Devices Not on file Insurance [facility] OUT OF STATE PPO BLUE CROSS OUT OF STATE PPO BLUE CROSS OUT OF STATE PPO BLUE CROSS OUT OF STATE PPO BLUE CROSS OUT OF STATE PPO BLUE CROSS OUT OF STATE PPO BLUE CROSS OUT OF STATE PPO OUT [facility] PPO Care Teams Dramatic Arts Historian Relationship Specialty Start Date End Date Christen Moss DO [address] [place] [id number] PCP - General Family Medicine 05/29/24 Additional Source Comments The information contained in this document represents components of the legal health record. It is not the complete legal health record.[facility]
== END ==
LOC: HO.CARD 10:00
PROVIDERS: PCP Nurse Practitioner
DX: I48.91 Unspecified atrial fibrillation (principal); I26.99 Other pulmonary embolism without acute cor pulmonale
CPT/HCPCS: 93306

== ENCOUNTER → 2025-07-02 10:02 | Outpatient (BNV) | payer BC, SELFPAY | PROVIDERS: PCP Nurse Practitioner; Visit Provider Internal Medicine Cardiovascular Disease | DX: I51.89 Other ill-defined heart diseases (principal); I48.91 Unspecified atrial fibrillation | CPT/HCPCS: 93306 ==

== ENCOUNTER 2025-08-09 12:50 | Outpatient (AMB) | payer BC, SELFPAY ==
--- NOTE | 2025-08-09 12:55 | MHC.OFFVIS ---
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 Patient previously was in the hospital for flu infection and was bed-bound for several days during that time and was noted to be in AFib with RVR and had a PE now on Eliquis. Patient is following with Hematology the PE. Patient states that this morning she had an appointment there where they decided to reduce her Eliquis to 2.5 mg b.i.d.. Today, patient is reporting feeling well overall without any cardiac symptoms of exertional chest pain, shortness of breath, palpitations, dizziness, orthopnea, PND, leg edema, presyncope or syncope. Patient is reporting compliance with all her medications. Since last visit, patient has undergone a Holter study and an echo which patient is here to review the results for. FORMERLY [facility] Medical History delivery delivered Pulmonary embolism Nephrolithiasis Surgical History Knee joint replacement status Family History Mother Colon cancer Social History Household Members: Spouse, Family and Children Housing: House Do you presently have visiting nurse or other home services: No Patient Tobacco Use Status: Never used Tobacco Tobacco use type: Cigarette Cigarette Packs Per Day: 0.5 Second Hand Smoke Exposure: No service: No Current occupational status: employed Review of Systems Const Denies daytime sleepiness, Denies difficulty sleeping, Denies snoring, Denies stops breathing during sleep and Denies weakness Card Denies chest pain, Denies rapid heart rate, Denies irregular heart rhythm, Denies claudication, Denies leg edema, Denies lightheadedness, Denies palpitations, Denies dyspnea, Denies dyspnea on exertion, Denies orthopnea, Denies paroxysmal nocturnal dyspnea and Denies slow heart rate Resp Denies cough, Denies dyspnea, Denies dyspnea on exertion and Denies snoring GI Reports no additional complaints, Denies hematochezia, Denies change in stool character and Denies dyspepsia Musc Denies abnormal gait, Denies muscle weakness and Denies numbness Neuro Denies abnormal gait, Denies numbness and Denies weakness Endo Denies palpitations Physical Exam Vital Signs: Last Vital Signs Pulse 84 08/09/25 12:56 BP 106/60 08/09/25 12:56 BMI result Body Mass Index 26.2 Const General: cooperative, healthy appearing, comfortable and no acute distress Orientation/consciousness: patient oriented x3 HEENT Head: Yes normal to inspection Neck Neck: Yes normal visual inspection, Yes trachea midline and Yes supple Chest Chest palpation & inspection: normal inspection of the chest Resp Effort & Inspection: normal respiratory effort Auscultation: clear to auscultation bilaterally, no crackles, no rales, no rhonchi and no wheezes Cardio Jugular venous distension: no JVD Palpation: normal PMI Rate: regular rate Rhythm: regular rhythm Heart sounds: S1 normal heart sound present, S2 normal heart sound present, no click, no gallops, no murmurs and no rubs Peripheral pulses: Peripheral pulses 2+ throughout GI Inspection: Yes normal to inspection Palpation (GI): Soft to palpation Auscultation: normal bowel sounds Skin General skin exam: no rashes or lesions noted Neuro General: patient oriented x3 Extrem General: Yes normal to inspection, No no pedal edema and No calf tenderness Psych Appearance: grossly normal Mental Status: mental status grossly normal Speech and movement: Normal speech and movement present Assessment & Plan Assessment & Plan (1) Afib: Code(s): I48.91 - Unspecified atrial fibrillation Category: Medical Plan: 02/15/2025-Holter study showed underlying normal sinus rhythm with rare PACs and PVCs. No AFib. 07/02/2025-echo study showed a normal LV systolic function with an ejection fraction between 55-60% with grade 1 diastolic dysfunction. Normal bilateral atrial size. Patient was sick with flu and was bed ridden for several days after which patient developed worsening shortness of breath and palpitations and went to the hospital. There she was noted to be in AFib with a RVR and had a right-sided PE. Her AFib could be triggered by the PE. Patient was initially on Eliquis dosing of 10 mg b.i.d. for the 6 days and then completed 6 months of 5 mg b.i.d.. This morning patient saw hematology in the decided to reduce her Eliquis to 2.5 mg b.i.d.. No reported signs of bleeding. Clinically stable. Given her elevated Danny Vasc risk score of 4, continue Eliquis therapy. If patient has any recurrence, patient will need to go on full dose Eliquis therapy. Continue metoprolol for rate control approach. We will repeat a Holter prior to returning in 1 year to check for recurrence. (2) Pulmonary embolism: Comment: diagnosed 01/07/25, segmental right sided, low clot burden, ?provoked - recent flu, smoking Code(s): I26.99 - Other pulmonary embolism without acute cor pulmonale Category: Medical Plan: As above. Advised on heart healthy diet, regular exercise, med compliance, avoiding caffeinated beverages, adequate hydration, and management of vascular risk factors. Follow up in 1 year, sooner if needed. In the interim, patient will call the office with any concerns or change in symptoms. This note was generated using voice recognition software. While every effort has been made to ensure accuracy and proper shrimp boat captain, there may be occasional errors that could affect the content or meaning of the described symptoms. Orders: Orders ECG 3 day holter monitor 10 Months I48.91 - Unspecified atrial fibrillation Coding Level of Care Code Est Pt Level 4 (73873) Complex EM visit Add On G2211 Diagnoses Afib I48.91 Pulmonary embolism I26.99 Time Spent (min) 31 Comment Time spent in reviewing the chart, test results, assessment, counseling and documentation.
[2025-08-09 12:56] VITALS: BP 106/60; PULSE 84; BMI 26.2
--- OUTSIDE RECORDS SUMMARY | 2025-08-09 18:45 | XMS_ITS | Clinical Summary ---
Author Organization [facility] Address [address] [address] Phone Care Team Providers Care Medical Record Librarian Name Role Phone Christen Moss Primary Care Provider Allergies No known active allergies Medications No [...] on patient's age to complete this topic IPV VACCINES Aged Out No longer eligi ble based on patient's age to complete this topic MENINGOCOCCAL VACCINES (ACWY) Aged Out No longer eligible based on patient's age to complete this topic MENINGOCOCCAL VACCINES (B) Aged Out N o longer eligible based on patient's age to complete this topic Medical Devices Not on file Insurance BLUE CROSS OUT OF STATE PPO BLUE CROSS OUT OF STATE PPO BLUE CROSS OUT OF STATE PPO BLUE CROSS OUT OF STATE PPO BLUE CROSS OUT OF STATE PPO BLUE CROSS OUT OF STATE PPO BLUE CROSS OUT OF STATE PPO BLUE CROSS OUT OF STATE PPO BLUE CROSS OUT OF [facility] PPO Care Teams Medical Record Librarian Relationship Specialty Start Date End Date Christen Moss DO [address] [place] [id number] PCP - General Family Medicine 05/29/24 Additional Source Comments The information contained in this document represents components of the legal health record. It is not the complete legal health record.[facility]
== END 2025-08-09 13:09 | disposition home or self-care (01) ==
LOC: HO.HCS 12:51
PROVIDERS: PCP Nurse Practitioner
DX: I48.91 Unspecified atrial fibrillation (principal); I26.99 Other pulmonary embolism without acute cor pulmonale
CPT/HCPCS: 99214